=== PATIENT | male | born 1960 | race Caucasian/White ===

== ENCOUNTER 2018-12-11 23:53 | Inpatient (IN) | payer MEDICAID ==
[~2018-12-11] VITALS: Ht 182.9 cm; Wt 118.0 kg
[2018-12-12] MEDS ORDERED: SODIUM CHLORIDE 0.9% 1,000 ML IV SCH (01:54)
[2018-12-12] MEDS ORDERED: PLEASE ENTER ALLERGIES MC SCH (02:30)
[2018-12-12 02:52] LABS: BASOPHILS # (AUTO) 0.03 x10^3/uL (0-0.1); BASOPHILS % (AUTO) 1 % (0-1); EOSINOPHILS # (AUTO) 0.16 x10^3/uL (0-0.4); EOSINOPHILS % (AUTO) 3 % (1-7); LYMPHOCYTES # (AUTO) 1.76 x10^3/uL (1-3.4); LYMPHOCYTES % (AUTO) 29 % (22-44); MD NO; MEAN CORPUSCULAR HEMOGLOBIN 29.5 pg (27.5-34.5); MEAN CORPUSCULAR HGB CONC 33.5 g/dL (33.2-36.2); MEAN CORPUSCULAR VOLUME 88.2 fL (81-97); MONOCYTES # (AUTO) 0.39 x10^3/uL (0.2-0.8); MONOCYTES % (AUTO) 6 % (2-9); NEUTROPHILS # (AUTO) 3.82 x10^3/uL (1.8-6.8); NEUTROPHILS % (AUTO) 62 % (42-75); PLATELET COUNT 204 x10^3/uL (130-400); RED BLOOD COUNT 4.15 x10^6/uL (4.38-5.82); RED CELL DISTRIBUTION WIDTH 13.6 % (9.4-14.8)
[2018-12-12] MEDS: METOPROLOL TARTRATE 25 MG TABLET PO SCH ×2 (03:00→11:51)
[2018-12-12 05:22] LABS: CHOL/HDL RATIO 4.2; LDL/HDL RATIO 0.9 (0.5-3.0)
[2018-12-12 06:33] LABS: HEMOGLOBIN A1C 7.2 % (4.2-6.3)
[2018-12-12] MEDS: INSULIN LISPRO 100 UNITS/ML, PEN SQ-INSULIN SCH ×4 (08:03→20:17)
[2018-12-12] MEDS ORDERED: LACOSAMIDE 150 MG in SODIUM CHLORIDE 0.9% 100 ML IV SCH (09:00)
[2018-12-12] MEDS ORDERED: PANT40TA5 PO (09:32)
[2018-12-12] MEDS ORDERED: INSU100I32 SQ (09:32)
[2018-12-12] MEDS ORDERED: Fioricet PO (09:32)
[2018-12-12] MEDS ORDERED: LOSA100T14 PO (09:32)
[2018-12-12] MEDS ORDERED: HYDR5TAB7 PO (09:32)
[2018-12-12] MEDS ORDERED: FENO48TA5 PO (09:32)
[2018-12-12] MEDS ORDERED: CHOL200074 PO (09:32)
[2018-12-12] MEDS ORDERED: GABA300C10 PO (09:32)
[2018-12-12] MEDS ORDERED: LACO150T PO (09:32)
[2018-12-12] MEDS ORDERED: ROSU5TAB PO (09:32)
[2018-12-12] MEDS ORDERED: METF850T10 PO (09:32)
[2018-12-12] MEDS ORDERED: METO50TA82 PO (09:32)
[2018-12-12] MEDS: BUTALB/APAP/CAFFEINE 50MG/325MG/40MG PO PRN ×2 (09:54→20:28)
[2018-12-12] MEDS ORDERED: LABETALOL 5 MG/ML SYRINGE IVPush PRN (18:30)
[2018-12-12 19:15] VITALS: BP 135/88
[2018-12-12] MEDS: GABAPENTIN 300 MG CAPSULE PO SCH (20:13)
[2018-12-12] MEDS: LACOSAMIDE 50 MG TABLET PO SCH (20:13)
[2018-12-12 20:15] VITALS: BP 150/83
[2018-12-12] MEDS ORDERED: ATORVASTATIN 80 MG TABLET PO SCH (21:00)
[2018-12-12] MEDS ORDERED: INSULIN GLARGINE 100 UNITS/ML, PEN SQ-INSULIN SCH (21:00)
[2018-12-12] MEDS ORDERED: ATORVASTATIN 10 MG TABLET PO SCH ×2 (21:00)
[2018-12-12 21:15] VITALS: BP 152/92
[2018-12-13] MEDS: BUTALB/APAP/CAFFEINE 50MG/325MG/40MG PO PRN ×3 (00:06→12:35)
[2018-12-13 00:14] VITALS: BP 141/96
[2018-12-13 05:36] LABS: BASOPHILS # (AUTO) 0.01 x10^3/uL (0-0.1); BASOPHILS % (AUTO) 0 % (0-1); EOSINOPHILS # (AUTO) 0.14 x10^3/uL (0-0.4); EOSINOPHILS % (AUTO) 2 % (1-7); LYMPHOCYTES # (AUTO) 1.63 x10^3/uL (1-3.4); LYMPHOCYTES % (AUTO) 26 % (22-44); MD NO; MEAN CORPUSCULAR HEMOGLOBIN 29.3 pg (27.5-34.5); MEAN CORPUSCULAR HGB CONC 32.9 g/dL (33.2-36.2); MEAN CORPUSCULAR VOLUME 88.9 fL (81-97); MEAN PLATELET VOLUME 7.8 fL (7.4-10.4); MONOCYTES # (AUTO) 0.41 x10^3/uL (0.2-0.8); MONOCYTES % (AUTO) 7 % (2-9); NEUTROPHILS # (AUTO) 4.09 x10^3/uL (1.8-6.8); NEUTROPHILS % (AUTO) 65 % (42-75); PLATELET COUNT 209 x10^3/uL (130-400); RED BLOOD COUNT 4.25 x10^6/uL (4.38-5.82); RED CELL DISTRIBUTION WIDTH 13.4 % (9.4-14.8)
[2018-12-13 05:46] LABS: ALBUMIN 3.7 g/dL (3.4-5.0); ANION GAP 7 mmol/L (5-15); CALCIUM 8.7 mg/dL (8.5-10.1); CHLORIDE 108 mmol/L (98-107)
[2018-12-13 05:50] LABS: ALANINE AMINOTRANSFERASE 23 U/L (12-78); ALKALINE PHOSPHATASE 60 U/L (45-117); BILIRUBIN,TOTAL 0.5 mg/dL (0.2-1.0); CHOLESTEROL, TOTAL 113 mg/dL (140-239); CREATININE 1.06 mg/dL (0.7-1.3); HDL CHOL % 25 % (26-37); HDL CHOLESTEROL (DIRECT) 28 mg/dL (40-60); LDL CHOLESTEROL,CALCULATED 43 mg/dL (54-169); LDL/HDL RATIO 1.5 (0.5-3.0); TOTAL PROTEIN 6.7 g/dL (6.4-8.2); TRIGLYCERIDES 210 mg/dL (50-200); VLDL CHOLESTEROL 42 mg/dL (0-25)
[2018-12-13 07:07] VITALS: BP 124/80
[2018-12-13] MEDS: GABAPENTIN 300 MG CAPSULE PO SCH ×2 (09:00→16:19)
[2018-12-13] MEDS ORDERED: LOSARTAN 50MG TABLET PO SCH (09:00)
[2018-12-13] MEDS: LACOSAMIDE 50 MG TABLET PO SCH (09:00)
[2018-12-13] MEDS ORDERED: METOPROLOL TARTRATE 50 MG TABLET PO SCH (09:00)
[2018-12-13] MEDS ORDERED: PANTOPROZOLE 40MG TABLET PO SCH (09:00)
[2018-12-13] MEDS: INSULIN LISPRO 100 UNITS/ML, PEN SQ-INSULIN SCH ×3 (10:35→16:17)
[2018-12-13 12:08] VITALS: BP 127/78
[2018-12-13] MEDS ORDERED: ASPI-515 PO (16:05)
== END 2018-12-13 17:11 | disposition home or self-care (01) | DRG 66 ==
LOC: ICU 12-12 01:22 → 4WST 12-12 23:57 → DCLOUNGE 12-13 17:05
PROVIDERS: ADMIT Family Medicine; ATTEND Family Medicine
DX: I63.9 Cerebral infarction, unspecified (principal); I10 Essential (primary) hypertension; I25.10 Atherosclerotic heart disease of native coronary artery without angina pectoris; G40.909 Epilepsy, unspecified, not intractable, without status epilepticus; Z79.4 Long term (current) use of insulin; Z79.899 Other long term (current) drug therapy; Z95.5 Presence of coronary angioplasty implant and graft; Z98.1 Arthrodesis status; E78.5 Hyperlipidemia, unspecified; E11.9 Type 2 diabetes mellitus without complications; D63.8 Anemia in other chronic diseases classified elsewhere; Z79.82 Long term (current) use of aspirin
CPT/HCPCS: 0399T; 36415; 70551; 80053; 80061; 82962; 83036; 85025; 87081; 93306; 93880; 99285; C9254; G0378; 92523-GN; J1815; J7030